=== PATIENT | male | born 2005 | race Caucasian/White ===

== ENCOUNTER 2025-05-19 17:16 | Emergency (ER) | payer BC, SELFPAY ==
--- NOTE | 2025-05-19 17:18 | ED_ITS ---
HPI - General Adult General Chief complaint: Urogenital-Male Stated complaint: Std Test Time Seen by Provider: 05/19/25 17:18 Source: patient Mode of arrival: ambulatory Limitations: no limitations History of Present Illness HPI narrative: Pt is a 19 y/o male presenting with c/o STI testing. Pt reports exposure to Chlamydia over this past weekend. He denies any sx. NO additional complaints. Review of Systems Review of Systems: CONSTITUTIONAL: Denies body aches, fever, chills, or sweats. EYES: Denies visual changes, redness, or discharge. ENT: Denies rhinorrhea, congestion, sore throat, or otalgia. CARDIOVASCULAR: Denies chest pain, palpitations, or edema. RESPIRATORY: Denies cough or dyspnea. GASTROINTESTINAL: Denies abdominal pain, nausea, vomiting, or diarrhea. GENITOURINARY: Denies dysuria or hematuria. SKIN: Denies rash, itching, or wounds. MUSCULOSKELETAL: Denies back pain, joint pain, or myalgia. NEUROLOGIC: Denies headache, numbness, tingling, or weakness. PSYCH: Denies depression or anxiety. All systems reviewed & are unremarkable except as noted in HPI and below Exam Narrative: GENERAL: Well-appearing, well-nourished, and in no acute distress. HEAD: Normocephalic, atraumatic. EYES: EOMI. No redness or drainage. Conjunctivae normal. ENT: Mucous membranes pink and moist. NECK: Normal AROM. Supple. CHEST: No respiratory distress. HEART: Regular rate SKIN: Warm, dry, no rash. Capillary refill normal. Normal skin turgor. NEURO: No focal deficits. Alert and oriented x3. Gait steady. PSYCH: Normal affect. No signs of depression or anxiety. Course Course Level of Care: Express Care Visit Vital Signs Vital signs: Vital Signs Temperature 98.5 F 05/19/25 17:30 Pulse Rate 92 05/19/25 17:30 Respiratory Rate 16 05/19/25 17:30 Blood Pressure 125/80 05/19/25 17:30 Pulse Oximetry 100 05/19/25 17:30 Temperature 98.5 F 05/19/25 17:30 Pulse Rate 92 05/19/25 17:30 Respiratory Rate 16 05/19/25 17:30 Blood Pressure 125/80 05/19/25 17:30 Pulse Oximetry 100 05/19/25 17:30 Medical Decision Making Vital Signs Vital Signs: Vital Signs Temperature 98.5 F 05/19/25 17:30 Pulse Rate 92 05/19/25 17:30 Respiratory Rate 16 05/19/25 17:30 Blood Pressure 125/80 05/19/25 17:30 Pulse Oximetry 100 05/19/25 17:30 Temperature 98.5 F 05/19/25 17:30 Pulse Rate 92 05/19/25 17:30 Respiratory Rate 16 05/19/25 17:30 Blood Pressure 125/80 05/19/25 17:30 Pulse Oximetry 100 05/19/25 17:30 Discharge Plan Discharge Clinical Impression: Exposure to sexually transmitted disease (STD), High risk heterosexual behavior Patient Disposition: Home Condition: Stable Instructions: Antibiotic Form, Chlamydia (ED) Additional Instructions: Go straight to ER should your symptoms become worse or should any new symptoms develop Patient Language: German Follow-up/Referrals: UNKNOWN,DOCTOR [Non-Staff] - 05/20/25 Time of Disposition: 17:30
[2025-05-19 17:30] VITALS: BP 125/80; PULSE 92; RESP 16; TEMP 36.9; O2SAT 100
[2025-05-19] MEDS: cefTRIAXone 0.5 GM, LIDOCAINE 1% LOCAL INJ 2.1 ML IM (17:51)
== END 2025-05-19 18:01 | disposition home or self-care (01) ==
LOC: EXPGOSH 17:21
PROVIDERS: Emergency Provider Registered Nurse
DX: Z20.2 Contact with and (suspected) exposure to infections with a predominantly sexual mode of transmission (principal); Z72.51 High risk heterosexual behavior
CPT/HCPCS: 87491; 87591; 96372; 99203; G0463; J0696; J2003